=== PATIENT | male | born 1970 | race Caucasian/White ===

== ENCOUNTER 2019-04-02 08:00 | Outpatient (CLI) | payer OTHER ==
[2019-04-10] MEDS ORDERED: OMNIPAQUE 350 MG/ML, 100ML BOTTLE ONE (11:05)
== END 2019-04-02 23:59 | disposition home or self-care (01) ==
LOC: RAD 08:00 → CFH 11:09 → RAD 23:59
PROVIDERS: ATTEND Otolaryngology
DX: J31.2 Chronic pharyngitis (principal); R49.0 Dysphonia
CPT/HCPCS: 70491; 74220; Q9967

== ENCOUNTER → 2019-04-10 | Outpatient (CLI) | payer OTHER | END | disposition home or self-care (01) | LOC: CFH 10:30 | PROVIDERS: ATTEND Otolaryngology | DX: J31.2 Chronic pharyngitis (principal); R49.0 Dysphonia | CPT/HCPCS: 70491; Q9967 ==

== ENCOUNTER 2020-12-18 09:57 | Emergency (ER) | payer OTHER ==
[~2020-12-18] VITALS: Ht 172.7 cm; Wt 69.4 kg
--- NOTE | 2020-12-18 10:45 | NUR ---
PT IS A 50M COMPLAINING OF ABSCESS ON RIGHT ARM X 4 DAYS WITH FEVER, NAUSEA AND VOMITING. FRIEND AT BEDSIDE. PT IS RESTING COMFORTABLY WATCHING TV. WARM BLANKET PROVIDED. CALL LIGHT, CONTINUOUS SPO2 AND CYCLING VITALS. NO ADDITIONAL NEEDS AT THIS TIME.
[2020-12-18] MEDS ORDERED: LIDOCAINE-MPF 1%, 5ML ONE (10:51)
[2020-12-18] MEDS ORDERED: LIDOCAINE-MPF 1%, 5ML INFIL ONE (11:00)
[2020-12-18 11:21] VITALS: BP 108/87
== END 2020-12-18 11:36 | disposition home or self-care (01) ==
LOC: ED 10:38 → UNDOADMIN 10:46 → EDIP 10:46 → ED 11:36
DX: L02.413 Cutaneous abscess of right upper limb (principal); R10.9 Unspecified abdominal pain
CPT/HCPCS: 10060; 99283

== ENCOUNTER 2020-12-21 09:22 | Emergency (ER) | payer OTHER ==
[~2020-12-21] VITALS: Ht 167.6 cm; Wt 73.5 kg
[2020-12-21 09:24] VITALS: BP 125/80
[2020-12-21] MEDS ORDERED: NEOSPORIN OINT. PKT 1 PACKET ONE (10:26)
== END 2020-12-21 10:35 | disposition home or self-care (01) ==
LOC: ED 10:25
DX: L02.511 Cutaneous abscess of right hand (principal)
CPT/HCPCS: 99281; 99282